=== PATIENT | female | born 1975 | race American Indian/Alaskan Native ===

== ENCOUNTER 2018-09-21 21:11 | Emergency (ER) | payer OTHER ==
--- NOTE | 2018-09-21 21:20 | Emergency Department Report ---
Stated Complaint: DIZZINESS/L ARM NUMBNESS Time Seen by Provider: 09/21/18 21:14 - HPI History of Present Illness: This is a 42 y.o. female that presents with dizziness and BUE numbness for 2 hours. - ROS Review of Systems: palpitations, dizziness, and numbness - Exam Vital Signs: Vital Signs 09/21/18 21:20 Temperature 97.9 F Pulse Rate 101 H Respiratory 18 Rate Blood Pressure 135/87 [Left] O2 Sat by Pulse 100 Oximetry MSE screening note: Focused history and physical exam performed. Due to findings the following was ordered: EKG, labs, POC glucose ED Disposition for MSE Condition: Stable
[2018-09-21 21:42] LABS: Basophils # (Auto) 0.1 K/mm3 (0.0-0.1); Basophils % (Auto) 0.8 % (0.0-1.8); Eosinophils # (Auto) 0.1 K/mm3 (0.0-0.4); Eosinophils % (Auto) 1.6 % (0.0-4.3); Hematocrit 36.6 % (30.3-42.9); Hemoglobin 12.4 gm/dl (10.1-14.3); Lymphocytes # (Auto) 2.8 K/mm3 (1.2-5.4); Lymphocytes % (Auto) 38.4 % (13.4-35.0); Mean Corpuscular HGB Conc 34 % (30-34); Mean Corpuscular Volume 89 fl (79-97); Monocytes # (Auto) 0.6 K/mm3 (0.0-0.8); Monocytes % (Auto) 7.6 % (0.0-7.3); Platelet Count 280 K/mm3 (140-440); Red Blood Count 4.12 M/mm3 (3.65-5.03); Red Cell Distribution Width 13.6 % (13.2-15.2)
[2018-09-21 21:53] LABS: BUN/Creatinine Ratio 14; Blood Urea Nitrogen 11 mg/dL (7-17); Hemolysis Index 5
[2018-09-21 23:02] LABS: HCG Qualitative,Urine Negative (Negative)
[2018-09-21] MEDS ORDERED: ANTIVERT PO ONE (23:25)
--- NOTE | 2018-09-21 23:28 | Emergency Department Report ---
ED Dizziness HPI - General Chief Complaint: Dizziness Stated Complaint: DIZZINESS/L ARM NUMBNESS Time Seen by Provider: 09/21/18 21:14 Source: patient Mode of arrival: Ambulatory Limitations: No Limitations - History of Present Illness Initial Comments: Patient is 42 years old female with no significant past medical history. Patient brought to the emergency room accompanied by her mother stating that patient started to have dizziness and generalized numbness. Patient described her dizziness has since all movement and she feels the room is spinning. This is associated with change in position. Patient denied any chest pain or shortness of breath. Patient stated that her heart was racing when she came to the ER. MD Complaint: dizziness -: This afternoon Timing: gradual onset Description: sense of movement, "room spinning" History of Same: Yes Severity: moderate Improves With: remaining still Worsens With: position Associated Symptoms: denies other symptoms - Related Data Allergies Allergy/AdvReac Type Severity Reaction Status Date / Time No Known Allergies Allergy Unverified 09/21/18 21:13 ED Review of Systems ROS: Stated complaint: DIZZINESS/L ARM NUMBNESS Other details as noted in HPI Comment: All other systems reviewed and negative Constitutional: denies: chills, fever Respiratory: denies: cough, orthopnea, shortness of breath, SOB with exertion, SOB at rest, wheezing Cardiovascular: denies: chest pain, palpitations Gastrointestinal: denies: abdominal pain, nausea, vomiting, diarrhea, constipation, hematemesis, melena, hematochezia Musculoskeletal: denies: back pain Neurological: denies: headache, weakness, numbness, paresthesias, confusion ED Physical Exam - General Limitations: No Limitations General appearance: alert, in no apparent distress - Head Head exam: Present: atraumatic, normocephalic, normal inspection - Eye Eye exam: Present: normal appearance, PERRL - ENT ENT exam: Present: normal exam, normal orophraynx, mucous membranes moist - Neck Neck exam: Present: normal inspection, full ROM. Absent: tenderness, meningismus, lymphadenopathy, thyromegaly - Respiratory Respiratory exam: Present: normal lung sounds bilaterally - Cardiovascular Cardiovascular Exam: Present: regular rate, normal rhythm, normal heart sounds - GI/Abdominal GI/Abdominal exam: Present: soft, normal bowel sounds. Absent: distended, tenderness, guarding, rebound, rigid, organomegaly, mass, bruit, pulsatile mass, hernia - Extremities Exam Extremities exam: Present: normal inspection, full ROM, normal capillary refill - Back Exam Back exam: Present: normal inspection, full ROM. Absent: CVA tenderness (R), CVA tenderness (L), paraspinal tenderness, vertebral tenderness - Neurological Exam Neurological exam: Present: alert, oriented X3, CN II-XII intact, normal gait, reflexes normal - Skin Skin exam: Present: warm, intact, normal color ED Course Vital Signs 09/21/18 09/21/18 21:20 23:38 Temperature 97.9 F 97.9 F Pulse Rate 101 H 75 Respiratory 18 14 Rate Blood Pressure 122/68 Blood Pressure 135/87 122/68 [Left] O2 Sat by Pulse 100 97 Oximetry ED Medical Decision Making - Lab Data Result diagrams: 09/21/18 21:26 09/21/18 21:26 - Radiology Data Radiology results: report reviewed CT brain is negative for acute finding. - Medical Decision Making Patient is 42 years old female with no significant past medical history. Patient brought to the emergency room accompanied by her mother stating that patient started to have dizziness and generalized numbness. Patient described her dizziness has since all movement and she feels the room is spinning. This is associated with change in position. Patient denied any chest pain or shortness of breath. Patient stated that her heart was racing when she came to the ER. Patient stated that she is feeling much better. CT brain is negative for acute findings. Labs reviewed and is negative. D-dimer is negative. EKG is unremarkable. I believe the patient has positional vertigo. Patient received meclizine in the ER. I will prescribe meclizine for the patient and advised her to follow up with her primary care physician in the next 2-3 days and to return to the ER if her symptoms are not improved. Critical care attestation.: If time is entered above; I have spent that time in minutes in the direct care of this critically ill patient, excluding procedure time. ED Disposition Clinical Impression: Dizziness, Positional vertigo Disposition: DC-01 TO HOME OR SELFCARE Is pt being admited?: No Condition: Stable Instructions: Vertigo (ED), Dizziness (ED) Referrals: SANTINO MARIN MD [Primary Care Provider] - 3-5 Days Forms: Work/School Release Form(ED)
--- NOTE | 2018-09-21 23:51 | Cat Scan Report ---
PROCEDURE: CT HEAD/BRAIN WO CON TECHNIQUE: Computerized tomography of the head was performed without contrast material. CT DOSE LENGTH PRODUCT: mGycm HISTORY: dizziness COMPARISONS: None . FINDINGS: Skull and scalp: Normal . Paranasal sinuses: Small polypoid lesion measuring over centimeters is noted involving the left sphe noid sinus consistent with mucous retention cyst. . Ventricles and subarachnoid spaces: Normal . Cerebrum: No evidence of hemorrhage, acute infarction or mass . Cerebellum and brainstem: No evidence of hemorrhage, acute infarction or mass . Vasculature: Normal . Other: None . ASPECTS: 10 IMPRESSION: No acute intracranial abnormality. This document is electronically signed by Stiven Eduardo MD., September 21 2018 11:49:44 PM ET
[2018-09-22 00:10] LABS: INR 0.87 (0.87-1.13); Partial Thromboplastin Time 30.3 Sec. (24.2-36.6)
[2018-09-22 00:49] VITALS: BP 104/64
== END 2018-09-22 00:50 | disposition home or self-care (01) ==
LOC: ED 21:11
DX: R42 Dizziness and giddiness (principal)
CPT/HCPCS: 36415; 70450; 80048; 81025; 85025; 85379; 85610; 85730; 93005; 93010